=== PATIENT | male | born 1945 | race Caucasian/White ===

== ENCOUNTER → 2016-05-08 | Outpatient (CLI) | payer MEDICARE, BC ==
[~2016-05-08] MED LIST: ASPIRIN81 M2 PO; BRILINTA90 MG PO; IMDUR-ER30 M2 PO; LIPITOR40 MG PO; METOPROLOL SUCC25 MG PO; ULTRAM PO
[2016-05-08 10:35] LABS: HEMOGLOBIN 13.4 gm/dL (13.0-16.0); MEAN CELL VOLUME 83.2 FL (83-96); MEAN CORPUSCULAR HGB CONC 33.6 g/dL (30-36); MEAN PLATELET VOLUME 7.1 FL (6.5-11.5); RED BLOOD COUNT 4.81 X10e (3.90-5.60); RED CELL DISTRIBUTION WIDTH 14.6 % (11.0-15.5); WHITE BLOOD COUNT 5.6 X10e3 (4.0-10.5)
[2016-05-08 10:38] LABS: URINE APPEARANCE CLEAR; URINE BILIRUBIN NEG (NEG); URINE BLOOD NEG (NEG); URINE COLOR YELLOW; URINE GLUCOSE NEG (NEG); URINE KETONE NEG (NEG); URINE LEUKOCYTE ESTERASE NEG (NEG); URINE NITRATE NEG (NEG); URINE PROTEIN NEG (NEG); URINE SPECIFIC GRAVITY 1.027 (1.003-1.035)
[2016-05-08 10:43] LABS: URINE SOURCE CLEAN CATCH
[2016-05-08 11:03] LABS: CALCIUM SERUM 9.1 mg/dL (8.4-10.2); GLOM FILT RATE Estimated 74.3 mL/min (>60); POTASSIUM 5.1 mmol/L (3.5-5.1)
[2016-05-08 11:27] LABS: CULTURE INDICATED? NO
== END | disposition home or self-care (01) ==
LOC: CAMB 09:16
PROVIDERS: Orthopaedic Surgery
DX: Z01.812 Encounter for preprocedural laboratory examination (principal); M19.072 Primary osteoarthritis, left ankle and foot
CPT/HCPCS: 36415; 80048; 81003; 85027; 87070

== ENCOUNTER 2016-05-22 07:04 | Inpatient (IN) | payer MEDICARE, BC ==
--- NOTE | ~2016-05-22 | DS ---
Unit #: [id number] #: [id number] Patient: SUZANNA WALSH [id number] [address] [place], [place] [address] [id number] MR#: [id number] NAME: SUZANNA WALSH. ROOM: [facility] Age: 71 Sex: M Admission Date: 05/22/2016 : 1945 Discharge Date: 05/24/2016 Attending Physician: Parris Hammer M.D. Primary Care Physician: Domenic Weir M.D. DISCHARGE SUMMARY CHIEF COMPLAINT Left ankle pain. HISTORY OF PRESENT ILLNESS The patient is a 71-year-old male with endstage left ankle arthritis unresponsive to conservative care. He has had a recent coronary artery stent and is now cleared for surgery. The risks of fusion versus replacement have been discussed, and he agrees to proceed with ankle replacement. HOSPITAL COURSE The patient was taken to the operating room on the date of admission where he underwent left total ankle arthroplasty using the Prophecy Infinity prosthesis. He also underwent gastrocnemius recession. He had a stable postoperative course except for some nausea. He was switched from morphine and Percocet to Ultram. This helped his pain significantly. He was seen by physical therapy on a daily basis and instructed on how to be nonweightbearing on his affected side. He was ready for discharge on the second postoperative day. Dressing was changed on the second postoperative day, and the wounds were healing well. FINAL DIAGNOSIS Left ankle arthritis. DISPOSITION/RECOMMENDATIONS 1. The patient is discharged home. He will keep the dressing clean, dry and intact. He will continue ice and elevation. He will continue nonweightbearing for 2 weeks. 2. Discharge medications remain the same as his home medications with the addition of Ultram 50 mg 1 or 2 p.o. q.4-6 hours p.r.n. pain (dispense 50). The patient is already on preoperative aspirin and Brilinta for his recent coronary artery stent. 3. Follow up in my office in 10-14 days for dressing change, suture removal and application of a Cam Boot. Dictated byEfren Bellamy/davian TD: 05/25/2016 08:39 JOB #: [id number] Unit #: [id number] #: [id number] Patient: JILLIANSUZANNA Dickson DISCHARGE SUMMARY Page 1 of 1 X Paty Hammer MD X DISCHARGE SUMMARY
--- NOTE | ~2016-05-22 | HP ---
Unit #: [id number] #: [id number] Patient: SUZANNA WALSH [id number] [address] [place], [place] [address] [id number] MR#: [id number] NAME: SUZANNA WALSH. ROOM: Age: Sex: M Admission Date: 05/22/2016 : 1945 Attending Physician: Parris Hammer M.D. Primary Care Physician: Domenic Weir M.D. HISTORY AND PHYSICAL CHIEF COMPLAINT Left ankle pain. HISTORY OF PRESENT ILLNESS The patient is a 70-year-old male with end stage left ankle arthritis unresponsive to conservative care. He has a history of coronary artery disease with a recent cardiac cath as well as COPD. He has failed to respond to conservative care. Radiographs demonstrate end stage left ankle arthritis without significant varus or valgus deformity. Risks and benefits of ankle fusion versus ankle replacement have been discussed. He elected to proceed with ankle joint replacement. PAST MEDICAL HISTORY Remarkable for: 1. Coronary artery disease. 2. Chronic obstructive pulmonary disease. 3. Hyperlipidemia. 4. Depression. HOME MEDICATIONS 1. Aspirin. 2. Atorvastatin. 3. Symbicort. 4. Isosorbide. 5. Ativan. 6. Metoprolol. 7. Brilinta. 8. Spiriva HandiHaler. ALLERGIES None. PAST SURGICAL HISTORY Cardiac catheterization. The patient has been cleared for surgery by Dr. Channing Osorio. Dr. Osorio states the patient is at acceptable risk for proposed surgery. He recently had revascularization of his right coronary artery with fairly large intracoronary stent. He states there is quite a bit of data supporting safety of temporarily interrupting dual antiplatelet therapy this early, in particular with a Resolute stent. SOCIAL HISTORY The patient is a social drinker. He is a former smoker with history of 48 Unit #: [id number] #: [id number] Patient: SUZANNA WALSH to 60 pack-years smoking in the past. PHYSICAL EXAMINATION GENERAL: This is a well developed, well nourished male in no acute distress. PHARYNX: Clear. NECK: Supple without masses. HEART: Regular sinus rhythm without murmurs or gallops. LUNGS: Clear. ABDOMEN: Soft and nontender without masses or organomegaly. Evaluation of the left ankle shows a normal arch. The hindfoot is neutral. Left ankle dorsiflexion -5 degrees, plantar flexion is 40 degrees. Subtalar motion normal. First MTP joint motion is normal. Patient has point tenderness over the anterior ankle and tibiotalar joint. Sensation is normal, pulses are normal. Motor exam is normal. Standing x-rays of the left ankle demonstrate end stage left ankle arthritis with bone on bone opposition. Lateral view shows significant joint space loss. ADMITTING DIAGNOSES End stage left ankle arthritis unresponsive to conservative care. PLAN The patient is admitted for left total ankle arthroplasty using the Digital [employer]ia System. The procedure was described along with risks of bleeding, infection, nerve damage, need for further surgery in the future, prolonged recovery time, deep venous thrombosis, pulmonary embolism, anesthetic complications, loosening of the prosthesis, infection of the prosthesis, need for multiple revisions of the prosthesis. A gastrocnemius recession may also be required. The patient understands the above risks and agrees to proceed. Dictated by Efren Li/lida TD: 05/22/2016 05:09 JOB #: [id number] HISTORY AND PHYSICAL Page 1 of 1 X Paty Hammer MD X HISTORY AND PHYSICAL
--- NOTE | ~2016-05-22 | OR ---
Unit #: [id number] #: [id number] Patient: SUZANNA WALSH [id number] [address] [address] [id number] I MR#: [id number] NAME: SUZANNA WALSH. ROOM: [facility] Date of Procedure: 05/22/2016 Admission Date: 05/22/2016 Surgeon: Parris Hammer M.D. : 1945 Attending Physician: Parris Hammer M.D. Primary Care Physician: Domenic Weir M.D. OPERATIVE REPORT PREOPERATIVE DIAGNOSIS Left ankle degenerative arthritis. POSTOPERATIVE DIAGNOSIS Left ankle degenerative arthritis. PROCEDURES PERFORMED 1. Left total ankle arthroplasty (99480). 2. Left gastrocnemius recession (33981). ASSISTANTS GERRY Engel, and GERRY Lai. ANESTHESIA Popliteal saphenous block and general. INDICATIONS FOR SURGERY The patient is a 71-year-old male with end-stage left ankle arthritis unresponsive to conservative care. He is admitted for ankle replacement. Risks and benefits of fusion versus replacement have been discussed and he agrees to proceed with total ankle arthroplasty. DESCRIPTION OF PROCEDURE The patient was taken to the operating room following popliteal saphenous block to the left leg. He was placed in a supine position and general anesthetic was induced. The left ankle was identified as the correct operative location during the time-out procedure. The IV antibiotic protocol was followed. The left leg was then prepped and draped in the usual sterile fashion. The leg was exsanguinated and the thigh tourniquet inflated to 300 mmHg. The IV antibiotic protocol was followed. A 12 cm anterior longitudinal incision was made over the ankle. The subcutaneous tissue was carefully divided and the superficial peroneal nerve was identified and protected. The extensor retinaculum was opened longitudinally. The interval between the extensor hallucis longus and anterior tibial tendons was entered. The neurovascular bundle was retracted laterally. The ankle joint was exposed through an anterior longitudinal capsular incision and the joint was exposed with subperiosteal dissection. The [employer] Prophecy total ankle replacement system was utilized. The patient's specific tibial guide was placed on the tibia and Unit #: [id number] #: [id number] Patient: SUZANNA WALSH pinned into place under C-arm fluoroscopic control. The tibial alignment guide with coronal spacer was applied and the #4 size was appropriate for the tibia. The medial and lateral superior drill holes were placed and then a coronal guide was removed and replaced by the #4 cutting guide. The cutting guide was pinned into place on the tibia and talus. A decision was made to couple the cuts. The saw was used to make the tibial cut, medial and lateral cuts, and talar cut. The tibial guide was removed and the cut bone was removed. The #4 tibial trial was placed and a lateral view was obtained to ensure that the size standard was appropriate. The punches were then used to make the hole from the distal tibia. The talar sizing guide was applied and adjusted under C-arm fluoroscopic control, and then pinned into place. This was removed and the talar cutting guide was then placed over the pins and the two screws were used medially and laterally to fix the guide to the talus. The posterior talar cut was made and the anterior talar neck was milled. This guide was then removed and the cuts were freshened with a rongeur. The final #4 talar trial was placed and positioned appropriately under C-arm fluoroscopic control, and then the two peg holes were drilled. All trials were removed. The wound was copiously irrigated and then the final #4 tibial component was impacted into place. The talar component #[address] and a 9 mm thick poly was placed. Excellent stability was achieved. The ankle barely reached dorsiflexion of 0 degrees. Therefore, a gastrocnemius recession was performed. A 5 mm medial longitudinal incision was made over the mid calf. Subcutaneous tissue was divided. The deep muscle fascia was opened. The interval between the gastrocnemius fascia and soleus fascia was developed with the sural nerve protected with an [facility] retractor, the gastrocnemius fascia was cut from medial to lateral. After complete release, the ankle dorsiflexed easily to 10 degrees. A 3-minute dilute Betadine wash was then applied and then lavaged with normal saline. Tourniquet was released with a total tourniquet time of 1 hour 20 minutes. The ankle joint capsule was closed with 2-0 Vicryl [id number] sutures. The extensor retinaculum was closed with 2-0 Vicryl [id number] sutures. Subcutaneous tissue was closed with 3-0 Vicryl and the skin was closed with interrupted 3-0 nylon horizontal mattress sutures. Xeroform gauze, dressing, sponges, Webril, and a posterior fiberglass splint were applied. The patient was then transported to the recovery room in stable condition. ESTIMATED BLOOD LOSS Minimal. COMPLICATIONS None. SPECIMENS None. TOURNIQUET TIME 1 hour 20 minutes. Dictated by.Lance Hammer M.D. Unit #: [id number] #: [id number] Patient: SUZANNA WALSH RT/modl TD: 05/23/2016 02:27 JOB #: [id number] OPERATIVE REPORT Page 1 of 1 X Paty Hammer MD X PROCEDURE OPERATIVE NOTE
--- NOTE | ~2016-05-22 | CR17 ---
[facility]. [facility] A Service of [facility] RADIOLOGY TEXT RESULTS PATIENT: SUZANNA WALSH LOCATION: [facility] 448-01 : [birth year] UNIT #: [id number] AGE: [address]: Paty Hammer MD SEX: M ORDER DR: [id number] [facility] [address] [facility]. [place], [place] [address] [id number] MR#: [id number] Acc #: [id number] NAME: SUZANNA WALSH. : 1945 SEX: M STUDY DATE/TIME: 05/22/2016 10:26 UNIT: [facility] ROOM: [facility] STUDY DESCRIPTION: CR Ankle 2 Views Lt Attending Physician: Parris Hammer M.D. Ordering Physician: Parris Hammer M.D. Primary Care Physician: Domenic Weir M.D. MEDICAL IMAGING REPORT This report is preliminary unless electronic signature is present EXAM Left ankle. HISTORY Status post left total ankle. COMPARISON 01/02/2016 FINDINGS Two limited field of view intraoperative digital radiographs were submitted. 1 minute and 15 seconds of fluoro time utilized. The patient is status post total ankle replacement with tibial and talar components in expected position and alignment. Subtalar joint unremarkable. IMPRESSION As above. Dictated by... Cinthia Law M.D. THIS IS AN ELECTRONICALLY VERIFIED REPORT Cinthia Law M.D. at 05/23/2016 3:33 PM NAYELI/yung TD: 05/23/2016 01:25 JOB #: [id number] MEDICAL IMAGING REPORT Page 1 of 1 COPY
[~2016-05-22 07:04] MED LIST changes: -ULTRAM PO
[2016-05-24] MEDS ORDERED: ULTRAM PO (10:46)
== END 2016-05-24 12:45 | disposition home or self-care (01) | DRG 470 ==
LOC: CSUR 07:04 → CPACUOF 09:09 → C4B 14:35
PROVIDERS: Orthopaedic Surgery
PROC: 0SRG0JZ Replacement of Left Ankle Joint with Synthetic Substitute, Open Approach (ICD-10-PCS; principal; 2016-05-22 09:30)
PROC: 0L8P0ZZ Division of Left Lower Leg Tendon, Open Approach (ICD-10-PCS; 2016-05-22 09:30)
DX: M19.072 Primary osteoarthritis, left ankle and foot (principal); J44.9 Chronic obstructive pulmonary disease, unspecified; I25.10 Atherosclerotic heart disease of native coronary artery without angina pectoris; E78.5 Hyperlipidemia, unspecified; F32.9 Major depressive disorder, single episode, unspecified; Z79.82 Long term (current) use of aspirin; Z87.891 Personal history of nicotine dependence
CPT/HCPCS: 73600; 76001; 94010; 94760; 94761; 97161; 97530; C1713; C1776; G8978-GP; G8979-GP; J0690; J2250; J2270; J2405; J2795; J3010